=== PATIENT | female | born 1995 | race Hispanic/Latino ===

== ENCOUNTER 2017-07-10 11:02 | Inpatient (IN) | payer BC, OTHER ==
[2017-07-10 11:55] VITALS: BMI 28.7
[2017-07-10 13:28] LABS: Bilirubin Negative (Negative); Blood, Urine Negative (Negative); Glucose, Urine (Dipstick) Negative (Negative); Ketone, Urine Negative (Negative); Nitrite Negative (Negative); Protein, Urine (Dipstick) Negative (Neg-Trace)
[2017-07-10 13:35] LABS: Bacteria/HPF Rare-Few HPF (None Seen); Hyaline Casts/LPF 0-3 HYALINE CAST LPF (0-3 Hyaline); RBC/HPF 0-3 HPF (0-3); WBC/HPF 0-3 HPF (0-3)
[2017-07-10 13:47] LABS: #Lymphocytes 1.6 thou/uL (1.20-3.40); #Monocytes 0.6 thou/uL (0.11-0.59); %Basophils 0.2 % (0.0-1.0); %Eosinophils 0.7 % (0.0-10.0); %Lymphocytes 25.2 % (21.0-51.0); %Monocytes 9.9 % (0.0-10.0); Hematocrit 29.6 % (36.0-47.0); Red Blood Cell (RBC) Count 4.09 mill/uL (4.20-5.40); White Blood Cell (WBC) Count 6.3 thou/uL (4.8-10.8)
[2017-07-10 14:07] LABS: ALT (SGPT) 24 U/L (8-55); AST (SGOT) 29 U/L (5-34); Alkaline Phosphatase 208 U/L (40-150); Anion Gap 12 mmol/L (10-20); Anisocytosis MODERATE=16-30 cells (100X) (0-5/hpf); BUN (Urea Nitrogen) 5 mg/dL (7.0-18.7); Bilirubin, Total 0.4 mg/dL (0.2-1.2); Calc. Creatinine Clearance 233 mL/min (70-130); Calcium 8.8 mg/dL (7.8-10.44); Carbon Dioxide 21 mmol/L (22-29); Chloride 105 mmol/L (98-107); Estimated GFR-MDRD Greater than 90; Globulin 3.7 g/dL (2.4-3.5); Hypochromia SLIGHT = 6-15 cells (100X) (0-5/hpf); Microcytosis MODERATE=15-30 cells (100X) (0-5/hpf); Ovalocytes SLIGHT = 2-5 cells (100X) (0-1/hpf); Polychromasia MODERATE = 3-4 cells (100X) (0-2/hpf); Protein, Total 6.3 g/dL (6.0-8.3); Schistocytes SLIGHT = 2-5 cells (100X) (0-1/hpf); Target Cells SLIGHT = 2-5 cells (100X) (0-1/hpf)
[2017-07-10] MEDS ORDERED: Ondansetron HCl/PF 4 MG/2 ML Vial IVP PRN ×3 (16:03→18:43)
[2017-07-10] MEDS ORDERED: Promethazine HCl 25 MG/ML VIAL IM PRN ×2 (16:03→18:43)
[2017-07-10] MEDS ORDERED: Bicitra 30 ML UDCUP PO SCH (16:15)
[2017-07-10] MEDS ORDERED: Lactated Ringer's 1,000 ML IV SCH ×2 (16:15)
[2017-07-10] MEDS ORDERED: Lidocaine 2% PF 10 ML AMP (For Epidural Use) ONE ×2 (16:55)
[2017-07-10] MEDS ORDERED: Ketorolac Tromethamine 30 MG/ML VIAL ONE (17:04)
[2017-07-10] MEDS ORDERED: PHENYLEPHRINE-NS 100 MCG/ML 10 ML SYRINGE ONE (17:04)
[2017-07-10] MEDS ORDERED: Ondansetron HCl/PF 4 MG/2 ML Vial ONE (17:04)
[2017-07-10] MEDS ORDERED: Dexamethasone 4 mg/ml Vial ONE (17:04)
[2017-07-10] MEDS ORDERED: ePHEDrine/0.9% NaCl/PF SYRINGE 50 mg/10 ml ONE (17:04)
[2017-07-10] MEDS ORDERED: Oxytocin 10 UNITS/ML VIAL ONE ×2 (17:04→17:08)
[2017-07-10] MEDS ORDERED: Fentanyl 100 MCG/2 ML VIAL ONE (18:18)
[2017-07-10] MEDS ORDERED: Ketorolac Tromethamine 30 MG/ML VIAL IVP PRN (18:43)
[2017-07-10] MEDS ORDERED: Naloxone HCl 0.4 mg/ml Vial IV PRN (18:43)
[2017-07-10] MEDS ORDERED: Meperidine HCl/PF 25 MG/ML VIAL SLOW IVP PRN (18:43)
[2017-07-10] MEDS ORDERED: HYDROmorphone 2 MG/ML VIAL SLOW IVP PRN (18:43)
[2017-07-10] MEDS ORDERED: Promethazine HCl 25 MG SUPP PR PRN (18:43)
[2017-07-10] MEDS ORDERED: Eucerin (Mineral Oil/Petrolatum,White) 30 gm Jar TOP PRN (18:43)
[2017-07-10] MEDS ORDERED: Naloxone HCl 0.4 mg/ml Vial IVP PRN ×2 (18:43)
[2017-07-10] MEDS ORDERED: diphenhydrAMINE HCl 50 MG/ML 1 ML VIAL IVP PRN (18:43)
[2017-07-10] MEDS ORDERED: Communication Order-Pharmacy FS SCH (18:45)
[2017-07-10] MEDS ORDERED: Meperidine HCl/PF 25 MG/ML VIAL ONE (20:36)
[2017-07-10] MEDS ORDERED: Lanolin Ointment 7 GM TUBE TOP PRN (21:53)
[2017-07-10] MEDS ORDERED: Adacel (T-DAP) 0.5 ML VIAL IM ONE (21:53)
[2017-07-10] MEDS ORDERED: diphenhydrAMINE HCl 25 MG CAP PO PRN (21:53)
[2017-07-10] MEDS ORDERED: LR w/ Pitocin 40 units/1000 ML BAG IV SCH (21:53)
[2017-07-10] MEDS ORDERED: Meperidine HCl/PF 25 MG/ML VIAL SLOW IVP SCH (22:45)
--- NOTE | 2017-07-11 00:21 | OP ---
DATE OF PROCEDURE: 07/10/2017 TIME: 1900 hours. PREOPERATIVE DIAGNOSES: 1. A 37 and 3/7 intrauterine . 2. Elevated blood pressure. 3. Prior section. POSTOPERATIVE DIAGNOSES: 1. A 37 and 3/7 intrauterine . 2. Elevated blood pressure. 3. Prior section. 4. Cord around the neck and body x1. SURGEON: Ethan Hyatt M.D. LEGAL LIBRARIAN: Ruth Gonzalez M.D. PROCEDURE IN DETAIL: This 22-year-old female, G2, P1, taken to the operating room. She wa s placed in the supine position. The abdomen prepped and draped sterilely. The previous scar was excised. Bleeders were cauterized. The subcutaneous was dissected down to the fascia. Fa scia was opened without incident. Peritoneum was opened by blunt dissection. Maximilian O was placed. Low transverse uterine incision was made. Fluid was noted to be clear. Delivered a baby boy, brent patric and screening. Delivered the baby without difficulty. Cord around the neck and body x1. The baby was suctioned. Cord was clamped and cut. Placenta was delivered. Sidney team was present. The cervix was dilated. The uterus was closed in 1 layer of #1 Monocryl. The sgddib-om-bnhepo were per formed to avoid hemostasis to the mid uterus. The abdomen was evacuated of all clots. Hemostasis w as adequate. The peritoneum and rectus were reapproximated with udubxb-wp-swfki stitches. Fascia w as closed with 0 Vicryl and the skin with addy. Estimated blood loss was 800 mL. Mother and bab y did well.
--- NOTE | 2017-07-11 00:57 | HP ---
DATE OF ADMISSION: 07/10/2017 HISTORY OF PRESENT ILLNESS: This is a 22-year-old black female with EDC of 07/29/2017 at 37 a nd 3/7-week, who presents with elevated blood pressures. The patient has a history of 1 prior chi fareed section for severe preeclampsia. This has been uncomplicated. The patient was put on aspirin early in her . She was doing well until last night when she had a nosebleed. At that time, she checked her blood pressure when it was found to be approximately 150/90. She then pr esented to the hospital where her blood pressures were noted to be elevated. The patient is request ing to proceed with a repeat . The only other complicating factor in this was hi story of chlamydia and gonorrhea, which has been treated. PAST MEDICAL HISTORY: Unremarkable. PAST SURGICAL HISTORY: Include x1 with postoperative wound hematoma and cholecystectomy. FAMILY HISTORY: Unremarkable. SOCIAL HISTORY: She is a former smoker. She works for [employer]. She has one son and she lives with a friend. REVIEW OF SYSTEMS: As above. PHYSICAL EXAMINATION: VITAL SIGNS: Temperature 98.1, pulse 83, respirations 18, blood pressure 136/87. GENERAL: No acute distress. HEENT: Clear. HEART: Regular rate and rhythm. LUNGS: Clear. ABDOMEN: Soft, gravid. heart tones 150s reactive with contractions every 2-3 minutes. EXTREM ITIES: With no edema. DTRs 1+. LABORATORY: White count 6.3, H and H 9.4 and 29.6. Sodium 135, potassium 3.3, creatinine 0.44, alk fab phosphatase 23. AST, ALT normal. Urine with no protein. One-hour GCT normal. HIV negative. Rubella immune, hepatitis B negative. GBS negative. B positive blood type. TSH normal. ASSESSMENT: 1. A 37 and 3/7 intrauterine . 2. induced hypertension. 3. Prior section. 4. Nosebleed. 5. Anemia. PLAN: 1. Discuss with Dr. Gonzalez. 2. Anesthesia preop. 3. Prepare for repeat low transverse section. 4. Routine L and D orders.
[2017-07-11 05:56] LABS: Red Blood Cell (RBC) Count 3.71 mill/uL (4.20-5.40); White Blood Cell (WBC) Count 14.4 thou/uL (4.8-10.8)
--- NOTE | 2017-07-11 07:34 | HP ---
DATE OF SERVICE: 07/10/2017 CHIEF COMPLAINT: Concern for high blood pressure. HISTORY OF PRESENT ILLNESS: At the time of presentation, Ms. Graff is a 21-year-old 2, para 1 female with history of prior section who is currently at 37 weeks 2 days. She has been receiving care with Dr. Kimberly Hyatt that is notable for preeclampsia in her first for which she was delivered by section at 38 weeks. The patient states that she felt that her blood pressure might be elevated because of a nosebleed and a headache that she has had her lef t holiness since last evening. She has not taken any medication for the headache and the nosebleed mascorro s since stopped. She did take her blood pressure at home and it was found to be 140s to 150s over 9 0s. The patient denies any visual disturbances. She denies any vomiting, constipation or diarrhea. She denies any cardiovascular or respiratory complaints. She denies any hematuria or dysuria. Th e patient reports good movement and denies any vaginal bleeding or leakage of fluid, but does report some occasional mild contractions. PAST MEDICAL HISTORY: Negative. PAST SURGICAL HISTORY: Cholecystectomy, section x1. OB HISTORY: 1. section for preeclampsia at 38 weeks. 2. Current . The patient states she is planning a repeat section. MEDICATIONS: Diclegis. ALLERGIES: No known drug allergies. SOCIAL HISTORY: Patient denies tobacco, alcohol, or illicit drug use. PHYSICAL EXAMINATION: VITAL SIGNS: Blood pressure 120-140s/80s-100s, pulse 78, respiratory rate 18, temperature 98.1. GENERAL: Nontoxic appearing female in no acute distress. HEENT: Normocephalic, atraumatic. LUNGS: Clear to auscultation. CARDIOVASCULAR: Regular rate and rhythm. ABDOMEN: Gravid, soft, nontender, nondistended, no rebound, no guarding. EXTREMITIES: Without cyanosis, clubbing or edema. NEUROLOGIC: Alert and oriented x3, no focal deficit. OBSTETRIC: heart tracing is 145 and reactive. Tocodynamometer shows rare uterine contraction s. ASSESSMENT AND PLAN: 1. A 37 week 2 day intrauterine with category 1 tracing. 2. Severe range gestational hypertension. The patient does not have elevated protein creatinine ra vasu or proteinuria. Platelets and LFTs are within normal limits. However, the patient is noted to have elevated blood pressures and headache and the blood pressures appear to be increasing. Given t hat she is term delivery is indicated, Dr. Ethan Hyatt will be admitting the patient for delivery.
[2017-07-11] MEDS: Docusate (Surfak) 240 MG CAP PO SCH ×2 (08:54→20:16)
[2017-07-11] MEDS: Prenatal Vitamin 1 TAB PO SCH (08:54)
[2017-07-11] MEDS: Ferrous Sulfate 325 MG TAB PO SCH ×2 (08:55→20:16)
[2017-07-11] MEDS: HYDROcodone/Acetaminophen 5/325 mg Tablet PO PRN ×3 (09:48→20:15)
[2017-07-11] MEDS ORDERED: Sodium Chloride 0.9% 10 ML ONE (10:14)
[2017-07-11] MEDS ORDERED: HYDROcodone/Acetaminophen 5/325 mg Tablet PO PRN (18:20)
[2017-07-12] MEDS: HYDROcodone/Acetaminophen 5/325 mg Tablet PO PRN ×3 (01:49→17:38)
[2017-07-12] MEDS: Ferrous Sulfate 325 MG TAB PO SCH ×2 (08:02→20:54)
[2017-07-12] MEDS: Prenatal Vitamin 1 TAB PO SCH (08:03)
[2017-07-12] MEDS: Docusate (Surfak) 240 MG CAP PO SCH ×2 (08:03→20:54)
[2017-07-12] MEDS ORDERED: Simethicone Chewable 80 MG TAB PO SCH (13:30)
[2017-07-13] MEDS: HYDROcodone/Acetaminophen 5/325 mg Tablet PO PRN ×3 (00:21→12:59)
[2017-07-13 07:36] VITALS: BP 134/89; TEMP 98.1
[2017-07-13] MEDS: Prenatal Vitamin 1 TAB PO SCH (08:52)
[2017-07-13] MEDS: Ferrous Sulfate 325 MG TAB PO SCH (08:52)
[2017-07-13] MEDS: Docusate (Surfak) 240 MG CAP PO SCH (08:52)
== END 2017-07-13 14:36 | disposition home or self-care (01) | DRG 766 ==
LOC: L&D/OP 11:02 → L&D 16:41 → 3SE 22:04
PROVIDERS: ADMIT Family Medicine; ATTEND Family Medicine
PROC: 10D00Z1 Extraction of Products of Conception, Low, Open Approach (ICD-10-PCS; principal; 2017-07-10)
DX: O34.219 Maternal care for unspecified type scar from previous cesarean delivery (principal); N85.8 Other specified noninflammatory disorders of uterus; Z3A.37 37 weeks gestation of pregnancy; O69.81X0 Labor and delivery complicated by cord around neck, without compression, not applicable or unspecified; O13.4 Gestational [pregnancy-induced] hypertension without significant proteinuria, complicating childbirth; Z37.0 Single live birth
CPT/HCPCS: 36415; 59025; 80053; 81001; 82570; 84156; 85025; 85027; 86780; 86850; 86900; 86901; 87340; A4216; J1100; J1885; J2001; J2175; J2274; J2405; J2590; J3010

== ENCOUNTER 2019-01-20 01:14 | Emergency (ER) | payer BC ==
[2019-01-20] MEDS ORDERED: Acetaminophen 500 MG TAB ONE (01:40)
[2019-01-20 01:49] LABS: Bilirubin Negative (Negative); Blood, Urine Large (Negative); Clarity CLOUDY (Clear); Glucose, Urine (Dipstick) Negative (Negative); Leukocyte Moderate (Negative); Nitrite Negative (Negative); Protein, Urine (Dipstick) 100 mg/dL (Neg-Trace); Specific Gravity, Urine 1.012 (1.002-1.036); Urobilinogen 0.2 mg/dL (0.2-1.0); pH, Urine 6.5 (5.0-9.0)
[2019-01-20 01:51] LABS: Bacteria/HPF 1+ HPF (None Seen); Pathc Cast-AUWi Flag 0.81 (0-2.49); Squamous Epithelial 0-3 HPF (0-3)
[2019-01-20 01:52] LABS: Yeast-AUWi Flag 123.5 (0-25.0)
[2019-01-20 01:56] LABS: #Basophils 0.1 thou/uL (0.0-0.2); #Lymphocytes 1.2 thou/uL (1.20-3.40); #Monocytes 0.9 thou/uL (0.11-0.59); #Neutrophils 14.3 thou/uL (1.40-6.50); %Basophils 0.7 % (0.0-1.0); %Eosinophils 0.2 % (0.0-10.0); %Lymphocytes 7.5 % (21.0-51.0); %Monocytes 5.6 % (0.0-10.0); Hemoglobin 10.9 g/dL (12.0-16.0); Mean Corpuscular HGB CONC 32.4 g/dL (32.0-36.0); Mean Corpuscular Hemoglobin 24.7 pg (27.0-31.0); Mean Corpuscular Volume 76.3 fL (78.0-98.0); Mean Platelet Volume 9.2 fL (7.4-10.4); Platelet Count 324 thou/uL (130-400); RBC Distribution Width 19.9 % (11.5-14.5); Red Blood Cell (RBC) Count 4.41 mill/uL (4.20-5.40); White Blood Cell (WBC) Count 16.6 thou/uL (4.8-10.8)
[2019-01-20 01:59] LABS: Hyaline Casts/LPF NONE SEEN LPF (0-3 Hyaline); Other Casts/LPF None Seen LPF (0-3 Hyaline); RBC/HPF 21-50 HPF (0-3); Yeast-All Forms None Seen HPF (None Seen)
[2019-01-20 02:16] LABS: ALT (SGPT) 16 U/L (8-55); AST (SGOT) 17 U/L (5-34); Albumin 3.7 g/dL (3.5-5.0); Alkaline Phosphatase 65 U/L (40-150); Anion Gap 14 mmol/L (10-20); BUN (Urea Nitrogen) 5 mg/dL (7.0-18.7); Bilirubin, Total 0.2 mg/dL (0.2-1.2); Calc. Creatinine Clearance 0 mL/min (70-130); Calcium 9.5 mg/dL (7.8-10.44); Carbon Dioxide 23 mmol/L (22-29); Chloride 102 mmol/L (98-107); Estimated GFR-MDRD Greater than 90; Globulin 3.3 g/dL (2.4-3.5); Glucose 102 mg/dL (70-105); Potassium 3.6 mmol/L (3.5-5.1); Sodium 135 mmol/L (136-145)
[2019-01-20] MEDS ORDERED: cefTRIAXone\\ROCEPHIN 1 GM VIAL ONE (03:02)
[2019-01-20] MEDS ORDERED: Lidocaine 1% (PF) 30 ML VIAL ONE (03:02)
--- NOTE | 2019-01-20 07:35 | ULT ---
PRELIMINARY REPORT/[facility]/EMERGENCY AFTER HOURS PROCEDURE: EXAM: US Retroperitoneal Complete. EXAM DATE/TIME: 01/20/2019 2:29 AM CLINICAL HISTORY: 23 years old, female; Pain and signs and symptoms; Constipation; Abdominal pain; Flank; Left; ; Patient HX: Lower back pain earlier today, now pain at left flank, frequent urination, constipation x 2-3 days; Additional info: Patient 12 wks TECHNIQUE: Imaging protocol: Real-time ultrasound of the retroperitoneum with image documentation. Complete exam. COMPARISON: US Pelvic Transvag 01/20/2019 2:12 AM FINDINGS: Right kidney: Normal appearance of the right kidney with normal cortical echogenicity and without hydronephrosis or mass. The right kidney measures 11.1 x 4.8 x 5.1 cm. Left kidney: The left kidney measures 11 x 7.3 x 6.1 cm. The left renal cortex appears more edematous than the right. No hydronephrosis. There is a simple cyst measuring 1.4 x 1.3 x 1.4 cm in the interpolar region. Bladder: Normal appearance of the bladder. Bilateral urinary jets were visualized. IMPRESSION: 1. No hydronephrosis. 2. The left kidney appears more edematous than the right, consider pyelonephritis in the appropriate clinical setting. Thank you for allowing us to participate in the care of your patient. Dictated and Authenticated by: Jill Marroquin MD 01/20/2019 3:37 AM Central Time ([place] & [place]) FINAL REPORT US Renal Bilateral STANDARD Final report: I agree with the report given by Dr. Jill Marroquin of [facility]. Transcribed Date/Time: 01/20/2019 8:10 AM
--- NOTE | 2019-01-20 07:39 | ULT ---
PRELIMINARY REPORT/[facility]/EMERGENCY AFTER HOURS PROCEDURE: EXAM: US After First Trimester, Transabdominal EXAM DATE/TIME: 01/20/2019 2:12 AM CLINICAL HISTORY: 23 years old, female; Pain and signs and symptoms; Lmp or gestational age (in weeks): 12w6d; Antepartum complications; Other: Lower back pain, now only at left flank; complicated by abdominal or pelvic pain; Other: Lt flank; ; Patient HX: Back pain, lt flank pain, frequent urination, constipation; Additional info: Patient 12 wks TECHNIQUE: Imaging protocol: Real-time transabdominal obstetrical ultrasound of the maternal pelvis and a second or third trimester with image documentation. COMPARISON: No relevant prior studies available. FINDINGS: GESTATION: Gestation: Single living intrauterine . Heart rate: heartbeat 169 beats per minute. Presentation: position vertex. Placenta: Posterior placenta. No evidence of placenta previa. Amniotic fluid: Amniotic fluid is normal for gestational age. Head, face, and neck: Incompletely evaluated due to early gestation Heart: Incompletely evaluated due to early gestation Abdomen: The stomach was visualized. Umbilical cord and insertion: Cord insertion visualized. Spine: Incompletely evaluated due to early gestation Extremities: Incompletely evaluated due to early gestation BIOMETRY: Estimated gestational age: Gestational age by LMP is 12 weeks and 1 day. Gestational age by ultrasound is 12 weeks and 6 days. Size and dates are concordant. Estimated due date: Estimated due date by ultrasound 07/29/2019 Estimated weight: Not calculated Biparietal diameter: 2 cm, 13 weeks and 1 day Head circumference: 7.3 cm, 13 weeks 0 day Abdominal circumference: 5.9 cm, 12 weeks 5 days Femur length: 0.9 cm, 12 weeks 5 days MATERNAL: Uterus: Unremarkable. Cervix: Unremarkable. Adnexa: No adnexal masses. IMPRESSION: 1. Single living intrauterine without abnormality identified. 2. Incomplete evaluation of organs due to early gestation. Routine followup recommended. 3. Estimated gestational age by ultrasound is 12 weeks and 6 days. Size and dates are concordant. Thank you for allowing us to participate in the care of your patient. Dictated and Authenticated by: Jill Marroquin MD 01/20/2019 3:46 AM Central Time ([place] & [place]) FINAL REPORT US Pelvic W Doppler FINDINGS/IMPRESSION: I agree with preliminary report given by Dr. Jill Marroquin of [facility]. Transcribed Date/Time: 01/20/2019 8:13 AM
== END 2019-01-20 03:51 | disposition home or self-care (01) ==
LOC: ERS 01:14
DX: O23.01 Infections of kidney in pregnancy, first trimester (principal); N10 Acute pyelonephritis; Z3A.12 12 weeks gestation of pregnancy
CPT/HCPCS: 36415; 76770; 76856; 80053; 81003; 81015; 85025; 87077; 87086; 87186; 93976; 96372; J0696; J2001

== ENCOUNTER 2019-03-03 07:04 | Outpatient (CLI) | payer BC, OTHER ==
--- NOTE | 2019-03-03 08:16 | ULT ---
Ultrasound obstetrical complete: DATE: 03/03/2019 HISTORY: 23-year-old female for supervision of normal first , second trimester FINDINGS: number:Frias lie:Transverse, head to maternal right Maternal cervix: Closed. Poorly visualized for measurement. Placenta:Fundal. No placenta previa. Amniotic fluid: Subjectively within normal limits. REGAN not measured. heart rate:150 bpm. The following anatomy is visualized without evidence of anomalies: Head, cerebellum, lateral ventricles, four-chamber heart, stomach, kidneys, cord insertion, bladder, cervical spine, thoracic spine, lumbar spine, sacrum, nose and lips, upper extremities, lower extreme venous, and three-vessel cord. biometry: BPD: 4.3 cm: 19 w 1 d HC: 16.3 cm: 19 w 1 d AC:14.0 cm: 19 w 3 d FL:2.9 cm: 19 w 0 d Average ultrasound age: 19 w 1d Estimated date of delivery: 07/27/2019 Estimated weight: 280 g +/- 41 g) IMPRESSION: 1) 2nd trimester intrauterine gestation. 2) estimated gestational age of: 19 weeks 1 days 3) lie:Transverse 4) no anatomic abnormality identified.
== END 2019-03-03 07:05 | disposition home or self-care (01) ==
LOC: SCSULT 07:04
PROVIDERS: ATTEND Family Medicine
DX: Z34.02 Encounter for supervision of normal first pregnancy, second trimester (principal); Z3A.19 19 weeks gestation of pregnancy
CPT/HCPCS: 76805

== ENCOUNTER 2019-05-14 01:15 | Inpatient (IN) | payer BC, OTHER ==
[2019-07-26] MEDS ORDERED: Promethazine HCl 25 MG/ML VIAL IM PRN ×3 (05:21→12:02)
[2019-07-26] MEDS ORDERED: Ondansetron PF 4 MG/2 ML Vial IVP PRN ×4 (05:21→12:02)
[2019-07-26] MEDS ORDERED: Lactated Ringer's 1,000 ML IV SCH (05:21)
[2019-07-26] MEDS ORDERED: hydrALAZINE 20 MG/ML VIAL SLOW IVP PRN ×2 (05:21→10:49)
[2019-07-26] MEDS ORDERED: CEFAZOLIN 2 GM in Premix Bag 1 BAG IVPB SCH (05:30)
[2019-07-26] MEDS ORDERED: Bicitra 30 ML UDCUP PO SCH (05:30)
[2019-07-26 05:42] VITALS: BMI 30.2
[2019-07-26 06:08] LABS: Hemoglobin 11.6 g/dL (12.0-16.0); Mean Corpuscular HGB CONC 33.8 g/dL (32.0-36.0); Mean Corpuscular Hemoglobin 26.9 pg (27.0-31.0); Mean Corpuscular Volume 79.6 fL (78.0-98.0); Mean Platelet Volume 9.1 fL (7.4-10.4); Platelet Count 258 thou/uL (130-400); RBC Distribution Width 17.8 % (11.5-14.5); Red Blood Cell (RBC) Count 4.32 mill/uL (4.20-5.40); White Blood Cell (WBC) Count 8.5 thou/uL (4.8-10.8)
[2019-07-26 06:52] LABS: HBSAg Index 0.13 S/CO (0-0.99); Hep B Surf Ag Non-Reactive S/CO (NonReactive); Syphilis Antibody Nonreactive (Nonreactive); Syphilis Antibody Index 0.07 S/CO (<1.00 Non-Reactive)
[2019-07-26] MEDS ORDERED: Promethazine HCl 25 MG SUPP PR PRN ×2 (06:55→12:02)
[2019-07-26] MEDS ORDERED: Ketorolac Tromethamine 30 MG/ML VIAL IVP PRN (06:55)
[2019-07-26] MEDS ORDERED: HYDROmorphone 2 MG/ML VIAL SLOW IVP PRN (06:55)
[2019-07-26] MEDS ORDERED: diphenhydrAMINE 50 MG/ML VIAL IVP PRN ×2 (06:55→12:02)
[2019-07-26] MEDS ORDERED: Naloxone HCl 0.4 mg/ml Vial IV PRN ×3 (06:55→12:02)
[2019-07-26] MEDS ORDERED: Meperidine HCl/PF 25 MG/ML VIAL SLOW IVP PRN (06:55)
[2019-07-26] MEDS ORDERED: L&D-Morphine 4 MG/ML VIAL SLOW IVP PRN (06:55)
[2019-07-26] MEDS ORDERED: Ondansetron HCl/PF 4 MG/2 ML Vial IVP PRN (06:55)
[2019-07-26] MEDS ORDERED: Naloxone HCl 0.4 mg/ml Vial IVP PRN ×3 (06:55→12:02)
[2019-07-26] MEDS ORDERED: Ketorolac Tromethamine 30 MG/ML VIAL IVP SCH (07:00)
[2019-07-26] MEDS ORDERED: Communication Order-Pharmacy FS SCH (07:00)
[2019-07-26] MEDS ORDERED: MORPHINE 5 MG/10 ML PF VIAL ONE (07:10)
[2019-07-26] MEDS ORDERED: Ondansetron PF 4 MG/2 ML Vial ONE ×2 (07:11→14:29)
[2019-07-26] MEDS ORDERED: PHENYLEPHRINE-NS 100 MCG/ML 10 ML SYRINGE ONE ×2 (07:11→14:29)
[2019-07-26] MEDS ORDERED: Oxytocin 10 UNITS/ML VIAL ONE ×2 (07:11→07:54)
[2019-07-26] MEDS ORDERED: ePHEDrine/0.9% NaCl/PF SYRINGE 50 mg/10 ml ONE (07:11)
[2019-07-26] MEDS ORDERED: EPINEPHrine 1 MG/ML AMP ONE (07:11)
[2019-07-26] MEDS ORDERED: Glycopyrrolate 0.2 MG/ML 5 ML SYRINGE ONE (07:46)
[2019-07-26] MEDS ORDERED: Ketorolac Tromethamine 30 MG/ML VIAL ONE ×2 (08:38→14:29)
[2019-07-26] MEDS ORDERED: Lanolin Ointment 7 GM TUBE TOP PRN (10:49)
[2019-07-26] MEDS ORDERED: diphenhydrAMINE 25 MG CAP PO PRN (10:49)
[2019-07-26] MEDS ORDERED: Acetaminophen/Codeine 30-300mg Tablet PO PRN (10:49)
[2019-07-26] MEDS ORDERED: Bisacodyl 10 MG SUPP PR PRN (10:49)
[2019-07-26] MEDS ORDERED: Acetaminophen 325 MG TAB PO PRN (10:49)
[2019-07-26] MEDS ORDERED: Ketorolac Tromethamine 60 MG/2 ML VIAL IVP PRN (12:02)
[2019-07-26] MEDS ORDERED: NO PO,IM,IV OR SC NARCOTICS FOR 12HR EXCEPT BY ANESTHESIA PO SCH (12:02)
[2019-07-26] MEDS ORDERED: Hydrocerin (Eucerin) Cream 120 gm Jar TOP PRN (12:02)
[2019-07-26] MEDS ORDERED: Acetaminophen 1,000 MG in Premix Bag 1 BAG IVPB PRN (12:02)
[2019-07-26] MEDS: Lactated Ringer's 1,000 ML IV SCH ×2 (12:40→15:41)
[2019-07-26] MEDS: Ibuprofen 800 MG TAB PO SCH ×2 (13:04→21:37)
[2019-07-26] MEDS ORDERED: ePHEDrine 50 MG/ML VIAL ONE (14:29)
--- NOTE | 2019-07-26 14:42 | OP ---
DATE OF PROCEDURE: 07/26/2019 ATTENDING PHYSICIAN: Kimberly Hyatt MD. RESIDENT PHYSICIAN: Monet Barroso DO. BATH SOLUTION MAKER PHYSICIAN: Ethan Hyatt MD. MEDICAL STUDENT: Laney Denise. PREOPERATIVE DIAGNOSES: 1. Term intrauterine . 2. Repeat low-transverse section x2. 3. History of preeclampsia with severe features in past . POSTOPERATIVE DIAGNOSES: 1. Term intrauterine , delivered. 2. Repeat low-transverse section x2. 3. History of preeclampsia with severe features in past . INDICATIONS: This is a 24-year-old G3, P2-0-0-2 at 39.1 weeks who presents for a scheduled repeat section. PROCEDURE IN DETAIL: After risks, benefits, and alternatives were discussed, the patient was taken back to the operating room where spinal anesthesia was initiated. After anesthesia was successfully performed, the patient was laid on the operating table in the left lateral position. Ancef 2 g was given prior to procedure. Patient was prepped and draped in the usual sterile fashion. A Pfannenstiel incision was made over the prior scars and carried down to the level of the fascia, which was sharply nicked. Of note, moderate amount of fascial adhesions present during this process. The incision was carried out laterally using Dalton scissors. The superior edge of the fascia was elevated using calista clamps. The superior and inferior edges of cut fascia were dissected using bovie due to degree of adhesions present. The peritoneum was entered bluntly after a small hole was made using Metzenbaum scissors. The fascia and muscles were extended laterally. No adhesions noted on the uterus. An Maximilian O was placed and a midline uterine incision was made using a scalpel. The uterus was entered bluntly and extended manually. Allis clamps were used for AROM and clear fluid was seen. Infant was delivered vertex with fundal pressure. Cord was clamped and cut and grossly normal female was handed to awaiting nurse. Cord blood was collected and placenta was removed spontaneously using gentle fundal pressure. The uterus was curetted with a dry lap and no remaining membranes were seen. Hysterotomy was closed using #1 Monocryl suture in a running locking fashion. Several mbolnj-og-tjrqh stitches as well as partial imbricating layer were needed to achieve hemostasis. Due to the degree of oozing noted even after various layers of sutures were used, FloSeal was applied to the hysterotomy. The hysterotomy was noted to be hemostatic at this point in time. The fascia was closed using 0 Vicryl suture in a running nonlocking fashion. Bleeders were cauterized in the subcutaneous tissue, and the skin was approximated using addy. A pressure dressing was applied. QBL: 863 mL FINDINGS: Grossly normal female infant with Apgars 9/9 at one and five minutes , respectively. Placenta intact with 3-vessel cord noted and discarded. DRAINS: Lo to gravity draining clear urine. Job ID: [id number] [facility]
[2019-07-26] MEDS: Ketorolac Tromethamine 30 MG/ML VIAL IVP PRN ×2 (15:42→21:35)
[2019-07-26] MEDS: Ferrous Sulfate 325 MG TAB PO SCH (17:16)
[2019-07-26] MEDS: Docusate Calcium (SURFAK) 240 MG CAP PO SCH (21:04)
[2019-07-27 03:24] LABS: Hemoglobin 10.4 g/dL (12.0-16.0); Mean Corpuscular HGB CONC 34.1 g/dL (32.0-36.0); Mean Corpuscular Hemoglobin 27.1 pg (27.0-31.0); Mean Corpuscular Volume 79.5 fL (78.0-98.0); Mean Platelet Volume 9.4 fL (7.4-10.4); Platelet Count 230 thou/uL (130-400); RBC Distribution Width 17.4 % (11.5-14.5); Red Blood Cell (RBC) Count 3.83 mill/uL (4.20-5.40); White Blood Cell (WBC) Count 11.3 thou/uL (4.8-10.8)
[2019-07-27] MEDS: Lactated Ringer's 1,000 ML IV SCH ×3 (04:13→17:23)
[2019-07-27] MEDS: HYDROcodone/Acetaminophen 5/325 mg Tablet PO PRN ×4 (05:03→17:24)
[2019-07-27] MEDS: Ibuprofen 800 MG TAB PO SCH ×3 (05:03→21:26)
[2019-07-27] MEDS: Prenatal Vitamin 1 TAB PO SCH (08:22)
[2019-07-27] MEDS: Docusate Calcium (SURFAK) 240 MG CAP PO SCH ×2 (08:22→21:26)
[2019-07-27] MEDS: Ferrous Sulfate 325 MG TAB PO SCH ×2 (09:25→11:00)
[2019-07-27] MEDS: Simethicone Chewable 80 MG TAB PO PRN (17:24)
[2019-07-28] MEDS: HYDROcodone/Acetaminophen 5/325 mg Tablet PO PRN ×3 (02:46→17:44)
[2019-07-28] MEDS: Lactated Ringer's 1,000 ML IV SCH ×3 (04:45→17:44)
[2019-07-28] MEDS: Ibuprofen 800 MG TAB PO SCH ×3 (05:32→21:46)
[2019-07-28] MEDS: Prenatal Vitamin 1 TAB PO SCH (08:03)
[2019-07-28] MEDS: Simethicone Chewable 80 MG TAB PO PRN ×2 (08:03→21:46)
[2019-07-28] MEDS: Docusate Calcium (SURFAK) 240 MG CAP PO SCH ×2 (08:03→21:46)
[2019-07-28] MEDS: Ferrous Sulfate 325 MG TAB PO SCH ×2 (08:06→17:43)
[2019-07-29] MEDS: Lactated Ringer's 1,000 ML IV SCH ×2 (02:12→07:45)
[2019-07-29] MEDS: HYDROcodone/Acetaminophen 5/325 mg Tablet PO PRN ×2 (03:21→09:36)
[2019-07-29] MEDS: Ibuprofen 800 MG TAB PO SCH (05:53)
[2019-07-29] MEDS: Ferrous Sulfate 325 MG TAB PO SCH (07:44)
[2019-07-29 08:07] VITALS: BP 128/74; TEMP 98.3
[2019-07-29] MEDS: Docusate Calcium (SURFAK) 240 MG CAP PO SCH (09:01)
[2019-07-29] MEDS: Prenatal Vitamin 1 TAB PO SCH (09:01)
== END 2019-07-29 12:50 | disposition home or self-care (01) | DRG 788 ==
LOC: L&D 07-26 05:04 → EDSTATUS 07-26 10:30 → 3SW 07-26 11:39
PROVIDERS: ADMIT Family Medicine; ATTEND Family Medicine
PROC: 10D00Z1 Extraction of Products of Conception, Low, Open Approach (ICD-10-PCS; principal; 2019-07-26)
DX: O34.211 Maternal care for low transverse scar from previous cesarean delivery (principal); O99.02 Anemia complicating childbirth; Z3A.39 39 weeks gestation of pregnancy; Z37.0 Single live birth; Z90.49 Acquired absence of other specified parts of digestive tract; Z87.891 Personal history of nicotine dependence; Z91.040 Latex allergy status; D64.9 Anemia, unspecified
CPT/HCPCS: 36415; 51702; 85027; 86780; 86850; 86900; 86901; 87340; J0131; J0171; J0690; J1885; J2274; J2405; J2590; J3490

== ENCOUNTER 2019-05-15 18:15 | Day surgery (SDC) | payer BC, OTHER ==
[2019-05-15] MEDS ORDERED: Iron Sucrose Complex 500 MG in Sodium Chloride 0.9% 250 ML 250 ML IVPB SCH (18:38)
[2019-05-15] MEDS ORDERED: Acetaminophen 500 MG TAB PO PRN (18:38)
[2019-05-15 19:00] VITALS: BMI 27.4
[2019-05-15] MEDS ORDERED: Sodium Chloride 0.9% 1,000 ML IV SCH (19:15)
== END 2019-05-16 00:10 | disposition home or self-care (01) ==
LOC: L&D/OP 18:15
PROVIDERS: ATTEND Family Medicine
DX: O99.019 Anemia complicating pregnancy, unspecified trimester (principal); Z79.899 Other long term (current) drug therapy; Z3A.00 Weeks of gestation of pregnancy not specified
CPT/HCPCS: 96361; 96365; 96366; 99282; J1756; J7050

== ENCOUNTER 2019-07-14 22:40 | Day surgery (SDC) | payer BC, OTHER ==
[2019-07-14 23:23] VITALS: BP 122/81; TEMP 98.6; BMI 30.2
[2019-07-14] MEDS ORDERED: hydrALAZINE 20 MG/ML VIAL SLOW IVP PRN (23:32)
--- NOTE | 2019-07-14 23:34 | PDOC.LDHP ---
Labor and Delivery H&P Chief complaint: other (BP check) HPI: Patient of Kimberly pink 24 yo CS xs2 at 37 weeks 1 Day with "increased BP" at home, here for BP check. Good FM, no VB, no ROM, no FLOREZ. Review of Systems: complete ROS performed and negative as aper HPI Current gestational age (weeks): 37 (i day) Dating criteria: last menstrual period Grav: 3 Para: 2 OB History Details: CS X2; HX PIH with both prior Current complications: none Abnormal US findings: No Current medications: pre-jennyfer vitamins, other (ABX for UTI) Previous surgical history: low tranverse CS (2) Allergies/Adverse Reactions: Allergies Allergy/AdvReac Type Severity Reaction Status Date / Time No Known Allergies Allergy Verified 07/14/19 23:24 Social history: none - Physical Exam Vital signs reviewed and normal: yes (122/81;119/78 afebrile 70s) General: NAD Heart: RRR FHT: category 1 [place] contractions every: none - Assessment Early term CS x2...normotensive in L&D; cat 1/reactive NST - Plan Plan: observation in L&D (BPs ok. Reactive NST. OK for recheck in AM with Dr Pink)
== END 2019-07-15 00:07 | disposition home or self-care (01) ==
LOC: L&D/OP 22:40
PROVIDERS: ATTEND Family Medicine
DX: O99.89 Other specified diseases and conditions complicating pregnancy, childbirth and the puerperium (principal); R03.0 Elevated blood-pressure reading, without diagnosis of hypertension; O34.211 Maternal care for low transverse scar from previous cesarean delivery; Z3A.34 34 weeks gestation of pregnancy

== ENCOUNTER 2020-06-30 13:29 | Emergency (ER) | payer BC, OTHER, SELFPAY ==
[2020-07-01 14:56] LABS: SARS-CoV-2 MS2 Positive; SARS-CoV-2 N Gene Negative; SARS-CoV-2 S Gene Negative; SARS-CoV-2 by NAA Not Detected (NotDetected); SARS-CoV-2 orf1ab Negative
== END 2020-06-30 13:57 | disposition home or self-care (01) ==
LOC: ERS 13:29
DX: R09.81 Nasal congestion (principal); R05 Cough; Z20.828 Contact with and (suspected) exposure to other viral communicable diseases
CPT/HCPCS: 87635; 99283; U0003